=== PATIENT | female | born 1950 | race Caucasian/White ===

== ENCOUNTER → 2019-05-31 | Outpatient (CLI) | payer MEDICARE, OTHER ==
[~2019-05-31] MED LIST: ALIG4CAP PO; ASPI81TA26 PO; CELE100C; CELE100C OR; CELE1CAP7 PO; CLAR1TAB2 PO; COLA100C2 OR; CYAN100049 PO; CYMB1CAP4 PO; EFFE150C2 PO; HYDR1CRE9 TOP; LEVO25TA2 OR; LEVO25TABR; LEVO88TA3 PO; MM S100C PO; MULTTAB20 PO; PERC5TAB8; PERC5TAB8 OR; PERC7.5T8; RA M500C PO; SYNT25TA PO; VITA-122 PO
--- NOTE | 2019-05-31 11:44 | REP ---
THREE-PHASE BONE SCAN OF THE KNEES: HISTORY: Left knee replacement. Rule out infection. Chronic pain left knee. Post left knee replacement. Comparison left knee radiographs are from April 21, 2019. A medial hemiarthroplasty was installed in the left knee in April 2010. The patient gives a remote prior history breast carcinoma. TECHNIQUE: 22.0 mCi technetium 99m MDP is injected, and standard three-phase imaging of the knees is acquired. FINDINGS: Anterior and posterior flow images demonstrate regional hyperemia about the left knee. Blood pool images demonstrate increased uptake about the left knee medially, laterally, and about the patellofemoral compartment. Blood pool images demonstrate mild medial compartment right knee uptake as well. Delayed scan images demonstrate moderately increased uptake diffusely in the left knee articulation. There is some photopenia associated with a hemiarthroplasty components in the medial aspect of the left knee. There is diffuse increased uptake in the articular margins of the distal femur as well as at the patellofemoral compartment and to a lesser extent the lateral tibial plateau. There is interface uptake on both sides of the medial hemiarthroplasty on the left. There is also a medial hemiarthroplasty on the right, and there is some expected interface uptake in the medial tibial plateau and medial femoral condyle at the interface. This is mild. IMPRESSION: Hyperemia and increased delayed scan uptake in and about the components of the left knee arthroplasty and in and about the remainder of the left knee articulation consistent with arthropathy. Electronically Signed by Ceasar Pelaez MD 05/31/2019 02:14 P
== END ==
LOC: M RAD 08:02
PROVIDERS: ATTEND Orthopaedic Surgery
DX: M25.562 Pain in left knee (principal); G89.29 Other chronic pain
CPT/HCPCS: 78315; A9503

== ENCOUNTER → 2019-06-14 | Outpatient (CLI) | payer MEDICARE, OTHER ==
--- NOTE | 2019-06-14 11:17 | REP ---
Left lower extremity duplex venous ultrasound: History: DVT versus venous insufficiency. DVT and reflux study requested. Findings: The deep veins are anechoic and fully compressible from the groin to the popliteal fossa in the left lower extremity on two-dimensional scanning. Color flow and spectral Doppler interrogation show no evidence of venous thrombosis. There is a 5.0 x 1.6 x 3.5 cm Head's cyst in the posterior popliteal soft tissues. Reflux findings: There are collateral superficial veins at the knee. Significant reflux is observed in the greater saphenous vein at proximal, mid and knee levels. Reflux was observed in the lesser saphenous vein. Reflux greater than 0.5 seconds was visible in the common femoral vein, proximal superficial femoral vein. The greater saphenous vein measures 5.2 mm in AP dimension at the saphenofemoral junction proximally where 3.2 second duration reflux was observed. At the midthigh the dimension is 4.6 mm and 5.1 second duration reflux is observed in the greater saphenous vein. The greater saphenous vein at the knee measures 5 mm in dimension and displays 4.7 second duration reflux. 4.7 second duration reflux was also observed in the lesser saphenous vein which measures 2.1 mm. Impression: 1. No evidence of DVT. 2. 5.0 cm Head's cyst. 3. Deep and superficial system reflux in the left lower extremity as above. Electronically Signed by Ceasar Pelaez MD 06/14/2019 03:24 P
== END ==
LOC: M RAD 09:58
PROVIDERS: ATTEND Family Medicine
DX: I82.591 Chronic embolism and thrombosis of other specified deep vein of right lower extremity (principal)

== ENCOUNTER → 2025-04-10 | Outpatient (CLI) | payer OTHER ==
[~2025-04-10] MED LIST changes: -ALIG4CAP PO; +ALIG4CAP3 PO; +B-12100020 PO; +BUSP10TA; -CELE1CAP7 PO; +CELE1CAP99 PO; +CIDA500T2 PO; +CYCL-707 PO; -EFFE150C2 PO; +EFFE150C3 PO; -HYDR1CRE9 TOP; +NAPR-1405 PO; +PROBCAP14 PO; +RED1TAB. PO; +SFHHYD1CR TOP; +SYNT50TA PO; +VITA100093
[2025-04-10 15:32] LABS: BASO # 0.0 10^3/uL (0.0-0.2); BASO % 0.4 % (0.0-1.0); EOS # 0.3 10^3/uL (0.0-0.5); EOS % 3.0 % (0.0-3.0); LYMPH # 1.8 10^3/uL (1.5-5.0); LYMPH % 21.4 % (24.0-44.0); MONO # 0.6 10^3/uL (0.0-0.8); MONO % 7.3 % (2.0-8.0); NEUTROPHILS # 5.8 10^3/uL (1.5-8.5); NEUTROPHILS % 67.5 % (36.0-66.0); PLATELET COUNT, AUTOMATED 224 10^3/uL (150-450)
[2025-04-10 15:44] LABS: ALT/SGPT 26.0 U/L (7.0-40); AST/SGOT 21.0 U/L (<34); CALCIUM LEVEL 9.6 MG/DL (8.3-10.6); CARBON DIOXIDE LEVEL 29.0 MMOL/L (20-31); CHLORIDE LEVEL 104.0 MMOL/L (98-107); CREATININE FOR GFR 0.9 MG/DL (0.55-1.30); GLOMERULAR FILTRATION RATE 67.5 (>39); POTASSIUM SERUM 4.8 MMOL/L (3.5-5.1); SODIUM LEVEL 140.0 MMOL/L (136-145)
[2025-04-10 16:07] LABS: CA15-3 ANTIGEN 12.5 U/ML (<32.4)
== END ==
LOC: M LAB 13:44
PROVIDERS: ATTEND Specialist
DX: C50.919 Malignant neoplasm of unspecified site of unspecified female breast (principal)

== ENCOUNTER 2025-04-30 13:00 | Observation (INO) | payer OTHER ==
[~2025-04-30] VITALS: Ht 170.2 cm; Wt 95.0 kg
[2025-04-30 13:44] LABS: BASO # 0.0 10^3/uL (0.0-0.2); BASO % 0.2 % (0.0-1.0); EOS # 0.0 10^3/uL (0.0-0.5); EOS % 0.2 % (0.0-3.0); LYMPH # 1.0 10^3/uL (1.5-5.0); LYMPH % 9.2 % (24.0-44.0); MONO # 0.4 10^3/uL (0.0-0.8); MONO % 3.6 % (2.0-8.0); NEUTROPHILS # 9.3 10^3/uL (1.5-8.5); NEUTROPHILS % 86.4 % (36.0-66.0); PLATELET COUNT, AUTOMATED 192 10^3/uL (150-450)
[2025-04-30 14:07] LABS: CALCIUM LEVEL 8.8 MG/DL (8.3-10.6); CARBON DIOXIDE LEVEL 29.0 MMOL/L (20-31); CHLORIDE LEVEL 104.0 MMOL/L (98-107); CREATININE FOR GFR 0.71 MG/DL (0.55-1.30); GLOMERULAR FILTRATION RATE 89.7 (>39); POTASSIUM SERUM 4.1 MMOL/L (3.5-5.1); SODIUM LEVEL 141.0 MMOL/L (136-145)
[2025-04-30] MEDS ORDERED: ISOVUE-370 76% 100 ML VIAL As Ordered ONE (16:45)
[2025-04-30 16:47] LABS: CK-MB VALUE MASS 1.2 NG/ML (<3.6)
[2025-04-30 16:49] LABS: CPK CREATINE PHOSPHOKINASE 69.0 U/L (34-145); MB/CK RELATIVE INDEX 1.73 (< OR =4)
[2025-04-30 17:47] LABS: CK-MB VALUE MASS 1.5 NG/ML (<3.6)
[2025-04-30 17:56] LABS: CPK CREATINE PHOSPHOKINASE 84.0 U/L (34-145); MB/CK RELATIVE INDEX 1.78 (< OR =4)
[2025-04-30] MEDS: CLOPIDOGREL 75 MG TAB PO ONE (18:41)
[2025-04-30] MEDS: ASPIRIN 81 MG CHEWABLE TABLET PO ONE (18:41)
[2025-04-30] MEDS ORDERED: LISI5TAB11 PO (18:42)
[2025-04-30] MEDS ORDERED: DULO1CAP6 PO (18:42)
[2025-04-30] MEDS ORDERED: CYCL1DRO10 OU (18:42)
[2025-04-30] MEDS ORDERED: CALC-196 PO (18:42)
[2025-04-30] MEDS ORDERED: ONE50TAB3 PO (18:42)
[2025-04-30] MEDS ORDERED: VITA80004 PO (18:42)
[2025-04-30] MEDS ORDERED: ROSU10TA61 PO (18:42)
[2025-04-30] MEDS ORDERED: ACET-840 PO (18:42)
[2025-04-30] MEDS ORDERED: OMEG10005 PO (18:42)
[2025-04-30] MEDS ORDERED: HOME MED LIST COMPLETE! XX SCH (18:45)
[2025-04-30] MEDS ORDERED: MAALOX 30 ML SUSP *UDC PO PRN (22:05)
[2025-04-30] MEDS ORDERED: MOM 30 ML SUSPENSION UDC PO PRN (22:05)
[2025-04-30] MEDS ORDERED: LABETALOL 100 MG/20 ML VIAL IV PRN (22:05)
[2025-04-30] MEDS ORDERED: ACETAMINOPHEN 325 MG TAB PO PRN (22:05)
[2025-04-30 22:52] LABS: C REACTIVE PROTEIN QUANTITATIV 0.62 MG/DL (<1.0)
[2025-04-30 22:53] LABS: CHOLESTEROL LEVEL 127.0 MG/DL (<200); CHOLESTEROL RISK RATIO 3.04 (<5); LDL CHOLESTEROL 64.5 MG/DL (<100); MAGNESIUM LEVEL 2.3 MG/DL (1.8-2.4); NON-HDL-C 85.3 MG/DL; PHOSPHORUS LEVEL 3.7 MG/DL (2.4-5.1); TRIGLYCERIDES LEVEL 104.0 MG/DL (<150)
[2025-04-30 22:54] LABS: ERYTHROCYTE SEDIMENTATION RATE 35 mm/hr (0-30)
[2025-04-30 23:08] LABS: ESTIMATED AVERAGE GLUCOSE 103.0 MG/DL (60-110)
[2025-05-01] VITALS (8 sets, daily range): BP systolic 112–163; BP diastolic 56–78; TEMP 97.3–97.8; O2SAT 95–99
[2025-05-01 08:04] LABS: PLATELET COUNT, AUTOMATED 212 10^3/uL (150-450)
[2025-05-01 08:37] LABS: CALCIUM LEVEL 9.6 MG/DL (8.3-10.6); CARBON DIOXIDE LEVEL 31.0 MMOL/L (20-31); CHLORIDE LEVEL 103.0 MMOL/L (98-107); CREATININE FOR GFR 0.76 MG/DL (0.55-1.30); GLOMERULAR FILTRATION RATE 82.7 (>39); POTASSIUM SERUM 4.4 MMOL/L (3.5-5.1); SODIUM LEVEL 141.0 MMOL/L (136-145)
[2025-05-01] MEDS: ASPIRIN 81 MG CHEWABLE TABLET PO SCH (11:00)
[2025-05-01] MEDS: ROSUVASTATIN 10 MG TAB PO SCH (11:00)
[2025-05-01] MEDS: PANTOPRAZOLE 40MG VIAL IV SCH (11:00)
[2025-05-01] MEDS: CLOPIDOGREL 75 MG TAB PO SCH (11:00)
[2025-05-01] MEDS: ENOXAPARIN 40 MG/0.4 ML SYRINGE (J1650 PER 10MG) SC SCH (11:01)
[2025-05-01] MEDS ORDERED: ROSU10TA61 PO (14:47)
[2025-05-01] MEDS ORDERED: CLOP75TA2 PO (14:47)
[2025-05-01] MEDS ORDERED: ASPI81CH8 PO (14:47)
[2025-05-02] MEDS ORDERED: FLUZONE HIGH DOSE (65+) 0.5 ML SYRINGE (25-26) IM.IMMUN ONE (09:00)
== END 2025-05-01 16:00 | disposition home or self-care (01) ==
LOC: M ED 13:00 → EDBD 13:00 → M ED INP 13:01 → M MS4PR 05-01 02:07
PROVIDERS: ADMIT Student in an Organized Health Care Education/Training Program; ATTEND Student in an Organized Health Care Education/Training Program
DX: I63.9 Cerebral infarction, unspecified (principal); I10 Essential (primary) hypertension; E78.5 Hyperlipidemia, unspecified; F32.A Depression, unspecified; F41.9 Anxiety disorder, unspecified; E03.9 Hypothyroidism, unspecified; R47.81 Slurred speech; I16.1 Hypertensive emergency; R11.0 Nausea; Z79.890 Hormone replacement therapy; Z79.899 Other long term (current) drug therapy; Z88.2 Allergy status to sulfonamides; Z88.5 Allergy status to narcotic agent; Z88.8 Allergy status to other drugs, medicaments and biological substances; Z96.651 Presence of right artificial knee joint; Z87.891 Personal history of nicotine dependence; Z85.3 Personal history of malignant neoplasm of breast; Z92.21 Personal history of antineoplastic chemotherapy; Z98.84 Bariatric surgery status; I08.0 Rheumatic disorders of both mitral and aortic valves
CPT/HCPCS: 36415; 70450; 70496; 70498; 70551; 71045; 80048; 80061; 82550; 82553; 83036; 83735; 84100; 84443; 84484; 85025; 85027; 85652; 86140; 86850; 86900; 86901; 92610; 93005; 93041; 93306; 94760; 96372; 97161; 97165; 97530; 99285; G0378; J1650; J2470; Q9967